=== PATIENT | male | born 1965 | race Caucasian/White ===

== ENCOUNTER → 2024-04-17 14:40 | Outpatient (REF) | payer OTHER, SELFPAY | LOC: HWRAD 14:40 | PROVIDERS: ATTENDING PHYSICIAN Nurse Practitioner | DX: M25.571 Pain in right ankle and joints of right foot (principal); M25.572 Pain in left ankle and joints of left foot; M79.674 Pain in right toe(s); M79.675 Pain in left toe(s) | CPT/HCPCS: 73610; 73630 ==

== ENCOUNTER → 2024-10-27 09:00 | Outpatient (REF) | payer OTHER, SELFPAY | LOC: REG 09:00 | PROVIDERS: ATTENDING PHYSICIAN Orthopaedic Surgery Hand Surgery; FAMILY PHYSICIAN Nurse Practitioner | DX: S62.241A Displaced fracture of shaft of first metacarpal bone, right hand, initial encounter for closed fracture (principal) | CPT/HCPCS: 93005 ==

== ENCOUNTER → 2024-11-07 08:43 | Outpatient (REF) | payer OTHER, SELFPAY | LOC: RAD 08:43 | PROVIDERS: ATTENDING PHYSICIAN Student in an Organized Health Care Education/Training Program; FAMILY PHYSICIAN Nurse Practitioner | DX: A69.23 Arthritis due to Lyme disease (principal); M19.071 Primary osteoarthritis, right ankle and foot; M19.072 Primary osteoarthritis, left ankle and foot | CPT/HCPCS: 73130; 73560; 73565 ==